=== PATIENT | female | born 2000 | race Caucasian/White ===

== ENCOUNTER → 2019-10-23 | Outpatient (CLI) | payer BC ==
--- NOTE | 2019-10-24 11:17 | RAD ---
PA and lateral chest. HISTORY: Short of breath PA and lateral views were taken of the chest. Heart is normal in size. Lungs are clear. There is no pleural effusion. IMPRESSION: 1. No acute chest disease. Electronically signed by: Josef Soto MD (10/24/2019 11:14 AM) [facility]
== END | disposition home or self-care (01) ==
LOC: DXRAD 14:53
PROVIDERS: ATTEND Specialist
DX: J45.20 Mild intermittent asthma, uncomplicated (principal)
CPT/HCPCS: 71046

== ENCOUNTER → 2020-07-04 | Outpatient (CLI) | payer BC ==
--- NOTE | 2020-07-04 14:07 | RAD ---
FOOT RIGHT 3V DATE: 07/04/2020 12:00 AM INDICATION: Reason: RIGHT FOOT PAIN / Spl. Instructions: / History: COMPARISON: None. FINDINGS: Bones: There is no evidence of acute fracture or dislocation. Joints: The joint spaces are normal. Miscellaneous: None. IMPRESSION: No acute osseous abnormality. Electronically signed by: Tino Flores MD (07/04/2020 2:04 PM) [id number]
== END ==
LOC: RAD 12:11
PROVIDERS: ATTEND Physician Assistant
DX: M79.671 Pain in right foot (principal)
CPT/HCPCS: 73630